=== PATIENT | male | born 1950 | race Caucasian/White ===

== ENCOUNTER 2019-02-10 07:28 | Outpatient (REF) | payer OTHER, SELFPAY ==
[2019-02-10 12:33] LABS: Anion Gap 7.9 mmol/L (3-11); BUN 16 mg/dL (7-18); CO2 31.1 mmol/L (21.0-32.0); CREATININE 0.94 mg/dL (0.70-1.30); Calcium 9.5 mg/dL (8.5-10.1); Chloride 102 mmol/L (98-107); Cholesterol 241 mg/dL (50-200); Glucose 95 mg/dL (70-100); HDL Cholesterol 47 mg/dL (40-60); LDL CHOLESTEROL 161 mg/dL (<100); Potassium 4.2 mmol/L (3.5-5.1); Sodium 141 mmol/L (136-145); Triglyceride 162 mg/dL (30-150)
[2019-02-13 10:33] LABS: PSA, Screening 0.9 ng/ml (0-4.5)
== END 2019-02-10 07:48 ==
LOC: NCHCN 07:28
PROVIDERS: PCP Nurse Practitioner Family; Visit Provider Nurse Practitioner Family
DX: Z00.00 Encounter for general adult medical examination without abnormal findings (principal); E78.5 Hyperlipidemia, unspecified; Z12.5 Encounter for screening for malignant neoplasm of prostate
CPT/HCPCS: 80048; 80061; 83721; 84153

== ENCOUNTER 2019-02-20 11:02 | Day surgery (SDC) | payer OTHER, SELFPAY ==
--- NOTE | 2019-02-20 06:51 | W.COLOREPORT ---
Date of service: 02/20/19 Time of Service: 12:46 Colonoscopy Report Date of procedure: 02/20/19 Pre-op diagnosis general: Colon Cancer Screening Post-op diagnosis procedure note: other (mild diverticulosis) Procedure: Colonoscopy Surgeon: Marylu Chan Anesthesia proc note operative: other (General/ ASA 2/ Brooke Casas CRNA) Estimated blood loss (mL): 0 Pathology: none sent Complications: None Disposition: same day Indications: Mr. Prieto is a pleasant 68 year old male who was seen in the office for a screening colonoscopy. His last colonoscopy was in 2008 and was normal. He has no family history of colon cancer that he is aware of. Risks, benefits and complications have been reviewed. Complications include but are not limited to bleeding, pain, perforation, missed small lesion/polyp, sore throat, aspiration and adverse reaction to the medications. Questions were entertained and answered to their satisfaction and they wished to proceed. No guarantees were given or implied. Prep: Miralax/Dulcolax Procedure Start Time: 12:46 Procedure End Time: 13:11 Retraction Time: 16 minutes Findings: Mild diverticulosis of sigmoid colon Procedure Description: After informed consent was obtained the patient was taken to the procedure room and placed in a left decubitous position. Monitors were applied and a time out was done. The patients name, date of , procedure, allergies to medications and metal in their body was reviewed. The patient was then sedated. Once sedated and comfortable a rectal exam was done. External exam was normal. Internal exam revealed a normal sphincter tone and no palpable masses. The prostate felt smooth. The scope was then introduced and retro-flexed. No internal hemorrhoids were identified. The scope was then advanced to the cecum without difficulty. The TI and appendiceal orifice were identified. The prep was adequate. The scope was then slowly retracted over 16 minutes back into the rectum. There were no polyps. There was mild diverticulosis of the sigmoid colon. The scope was removed and the patient was woken up and taken back to Same day surgery in stable condition. The patient tolerated the procedure well and there were no immediate complications. Follow up: The patient should follow up in 10 years unless they develop changes in bowel habits or other new gastrointestinal complaints.
--- NOTE | 2019-02-20 06:54 | PDOC.DSDIS_ITS ---
Discharge Plan Disposition Patient Disposition: HOME Condition: Good Discharge Details Reason For Visit: Colon Cancer Screening Attending Provider: Marylu Chan Primary Care Provider: Hina Jeong Home Meds and New Rx's Prescriptions: Continued pantoprazole 40 mg tablet,delayed release (DR/EC) 40 mg PO DAILY RF: 0 multivitamin,tx-minerals tablet 1 tab PO DAILY RF: 0 dorzolamide-timolol 10 ML drops Ophthalmic QPM RF: 0 Discontinued polyethylene glycol 3350 17 gram/dose powder 238 g PO ONCE Qty: 238 RF: 0 bisacodyl [Dulcolax (bisacodyl)] 5 mg tablet,delayed release (DR/EC) 5 mg PO ONCE Qty: 4 RF: 0 Discharge Instructions Instructions: Colonoscopy (DC), Diverticulosis (DC) Additional Instructions: Findings: mild diverticulosis Follow up:10 years Please call if you develop: fevers >101.5 Nausea or Vomiting Abdominal pain that is not transient DAY SURGERY UNIT POST COLONOSCOPY INSTRUCTIONS 1. Because there will be medication in your system for the next 24 hours, you may feel a little sleepy. Your coordination will be affected. Therefore: a. Do not drive or operate dangerous equipment for 24 hours. b. Do not drink alcohol beverages for 24 hours (not even beer). c. Plan to go home and rest for the day. 2. Generally there are no restrictions on your activity after a day or so has gone by, but you may feel a bit fatigued for a few days. 3 After you arrive home you may have a light meal and return to a normal diet as you can tolerate it without feeling sick to your stomach. 4. After surgery, you may feel pain or discomfort. This should be only transient, but if it persists please contact your doctor. 5. If there are any questions regarding the findings of your procedure, please f eel free to contact your doctor. 6. If you are unable to contact your doctor with a problem, contact the hospital at [phone]. 7. Continue all your regular medications unless directed otherwise. I understand the above instructions and have no questions. Signature of Patient or Responsible Adult Escort Date/Time Name of Responsible Adult Escort Signature of Nurse Date/Time Activity:: Activity as Tolerated Diet:: HIgh fiber diet Discharge Orders Discharge Orders: Discharge Order (Routine); Ordered 02/20/19 Ordered By: Marylu Chan DS: Diagnosis Discharge Diagnosis (1) S/P colonoscopy: Status: Acute (2) Diverticulosis: Status: Acute
[2019-02-20 11:15] VITALS: BP 130/94; PULSE 80; RESP 18; TEMP 36; O2SAT 96
[2019-02-20] MEDS: Lactated Ringers 1,000 ML 80 ML IV (11:26)
[2019-02-20 13:45] VITALS: BP 123/81; PULSE 71; RESP 16; TEMP 35.7; O2SAT 96
== END 2019-02-20 14:29 | disposition home or self-care (01) ==
LOC: SUR 11:02
PROVIDERS: PCP Nurse Practitioner Family; Visit Provider Surgery
PROC: 0DJD8ZZ Inspection of Lower Intestinal Tract, Via Natural or Artificial Opening Endoscopic (ICD-10-PCS; CPT 45378; principal; 2019-02-20 12:00)
DX: Z12.11 Encounter for screening for malignant neoplasm of colon (principal); K57.30 Diverticulosis of large intestine without perforation or abscess without bleeding; K21.9 Gastro-esophageal reflux disease without esophagitis
CPT/HCPCS: 45378

== ENCOUNTER 2024-04-25 12:16 | Outpatient (REF) | payer MEDICARE, BC, SELFPAY ==
[2024-04-25 16:18] LABS: HCT 46.8 % (40.0-50.0); HGB 15.8 g/dL (13.5-17.5); MCH 32.2 pg (27.0-33.0); MCHC 33.8 % (32.0-36.0); MCV 95 fL (80-95); Platelet Count 244 10^3/uL (130-400); RBC 4.91 10^6/uL (4.36-5.78); RDW 14.2 % (11.8-14.1); RDW-SD 50.2 fL
[2024-04-25 16:46] LABS: FREE T4 0.95 ng/dL (0.76-1.46); TSH 1.04 uIU/Ml (0.36-3.74)
[2024-04-25 17:42] LABS: Vitamin B12 505 pg/mL (193-986)
[2024-05-03 16:30] LABS: Hepatitis C Ab w Rflx HCV PCR Negative (Negative); PSA, Screening 1.2 ng/mL (<=6.5); Syphilis Serology (RPR) Negative (Negative)
[2024-05-03 16:31] LABS: HIV-1/2 Ag & Ab Screen Negative (Negative)
== END 2024-04-25 12:17 | disposition home or self-care (01) ==
LOC: NCHCN 12:16
PROVIDERS: PCP Physician Assistant; Visit Provider Physician Assistant
DX: Z12.5 Encounter for screening for malignant neoplasm of prostate (principal); Z11.3 Encounter for screening for infections with a predominantly sexual mode of transmission; Z11.59 Encounter for screening for other viral diseases
CPT/HCPCS: 84153; 85027; 86803; 87389; 82607; 84439; 84443; 86592

== ENCOUNTER 2024-05-17 09:29 | Outpatient (REF) | payer MEDICARE, BC, SELFPAY ==
[2024-05-17 16:17] LABS: ALT 28 U/L (16-63); AST 15 U/L (15-37); Alkaline Phosphatase 34 U/L (46-116); BUN 13 mg/dL (7-18); Bilirubin, Total 0.31 mg/dL (0.2-1.0); CREATININE 0.9 mg/dL (0.70-1.30); Calcium 9.2 mg/dL (8.5-10.1); Calculated LDL 132 mg/dL (<100); Chloride 105 mmol/L (98-107); Cholesterol 210 mg/dL (<200); Estimated GFR 90.18 (mL/min/1.73m2); Glucose 93 mg/dL (74-106); HDL Cholesterol 62 mg/dL (40-60); Potassium 4.7 mmol/L (3.5-5.1); Sodium 143 mmol/L (136-145); Total Protein 7.2 g/dL (6.4-8.2); Triglyceride 82 mg/dL (<150)
[2024-05-17 16:23] LABS: Anion Gap 8.1 mmol/L (3-11); CO2 29.9 mmol/L (21.0-32.0)
== END 2024-05-17 09:30 | disposition home or self-care (01) ==
LOC: NCHCN 09:29
PROVIDERS: PCP Physician Assistant; Visit Provider Physician Assistant
DX: E78.5 Hyperlipidemia, unspecified (principal)
CPT/HCPCS: 80053; 80061